=== PATIENT | female | born 1965 | race Caucasian/White ===

== ENCOUNTER → 2017-04-01 | Outpatient (CLI) | payer BC ==
--- NOTE | 2017-04-07 16:36 | RADIOLOGY REPORT PS360 ---
DIG MAMM-SCREEN JIGAR W/CAD CAD Screening COMPARISON: None, this is baseline INDICATION: There is a history of breast cancer patient maternal aunt diagnosed in her 50s. The referring physician felt possible lump in her quadrant left breast TECHNIQUE: Standard CC and MLO images were obtained. R2 CAD reviewed. FINDINGS: Diffuse heterogenic fibroglandular densities are seen in both breasts a marker was placed lower inner quadrant left breast at the location of the possible lump and there is no underlying abnormality at this site. There is no suspicious lesion and no suspicious microcalcifications. IMPRESSION: Moderate diffuse heterogenic breast density no suspicious lesion seen. Ultrasound of the possible lump could not be performed at the time of the mammogram would recommend the patient return for follow-up ultrasound left breast for evaluation the possible lump. BI-RADS CATEGORY: 0_Incomplete: Need additional imaging RECOMMENDED FOLLOWUP: USB ULTRASOUND-BREAST (A letter has been sent to the patient regarding results of the study.)
== END ==
LOC: RAD 15:42
DX: N63.24 Unspecified lump in the left breast, lower inner quadrant (principal); Z12.31 Encounter for screening mammogram for malignant neoplasm of breast
CPT/HCPCS: G0202

== ENCOUNTER → 2017-04-14 | Outpatient (CLI) | payer BC ==
--- NOTE | 2017-04-15 14:53 | RADIOLOGY REPORT PS360 ---
US BREAST-LT COMPLETE W/AXILLA COMPARISON: Mammogram of 04/01/2017 INDICATION: Palpable abnormality at 8:00 ORDERING PHYSICIAN: ANDREW CABRERA APRN PATIENT AGE: 51 years TECHNIQUE: Standard ultrasound images FINDINGS: There is a 1 x 0.7 cm fairly well-circumscribed slightly hypoechoic nodule in the 8:00 region of the left breast. This is not demonstrated by mammography due to the location. There is some enhanced through transmission of sound. The nodule is fairly well-circumscribed however, there is some slight irregularity lateral margins. This may represent a sebaceous cyst. Cannot sleep the possibility of neoplasm. Ultrasound-guided fine-needle aspiration/core biopsy suggested for further evaluation IMPRESSION: Complex hypoechoic nodule 8:00 region left breast. This does not represent a simple cyst and could be due to either a solid nodule or a sebaceous cyst. BI-RADS CATEGORY: 4_Suspicious Abnormality RECOMMENDED FOLLOWUP: Ultrasound guided fine-needle aspiration/core biopsy of left breast (A letter has been sent to the patient regarding results of the study.)
== END ==
LOC: RAD 09:55
DX: N63.24 Unspecified lump in the left breast, lower inner quadrant (principal)